=== PATIENT | male | born 1970 | race Caucasian/White ===

== ENCOUNTER 2018-08-18 20:15 | Emergency (ER) | payer BC, OTHER ==
[2018-08-18 20:27] VITALS: BP 133/93
--- NOTE | 2018-08-18 20:45 | UC ---
Throat Pain/Nasal Raimundo HPI - HPI Summary HPI Summary: 48 y/o male presents to the urgent care c/o URI symptoms for the past week. Pt reports sinus congestion w. yellowish moderate nasal discharge and +PND getting wore since 08/13/2018. Pt reports his has been work up here at the clinic for whooping cough, but he denies any of her symptoms. His cough is mild and dry , probably due to PND. Pt states sinus pain and pressure is 5/10 w/ B/L ear pressure too. Pt denies fever, dizziness, LACY, SOB, chest pain,abdominal pain, N/ V/d. - History of Current Complaint Chief Complaint: UCRespiratory Stated Complaint: sinus CONGESTION Time Seen by Provider: 08/18/18 20:44 Hx Obtained From: Patient Onset/Duration: Gradual Onset, Lasting Weeks - 1 week, Worse Since - since 08/13/2018 Severity: Moderate Pain Intensity: 5 Pain Scale Used: 0-10 Numeric Cough: Nonproductive Associated Signs & Symptoms: Positive: Sinus Discomfort, Nasal Discharge - yellowish. Negative: Dysphagia, Wheezing, Fever - Epiglottits Risk Factors Epiglottis Risk Factors: Negative - Allergies/Home Medications Allergies/Adverse Reactions: Allergies Allergy/AdvReac Type Severity Reaction Status Date / Time oxycodone Allergy SYNCOPE Verified 08/18/18 20:27 Home Medications: Home Medications Mv-Min/Vit C/Glut/Lysine/Hb124 [Airborne Effervescent Tablet] 1 each PO PRN 12/01 [History] Naproxen Sodium/Pseudoephedrin [Aleve-D Sinus and Cold Caplet] 1 each PO PRN 12/01 [History] guaiFENesin ER TAB [Mucinex*] 600 mg PO BID PRN 08/18/18 [History Confirmed 12/01] PMH/Surg Hx/FS Hx/Imm Hx Previously Healthy: Yes - Pt denies PMHX - Surgical History Surgical History: Yes Surgery Procedure, Year, and Place: TONSILLECTOMY, LEFT WRIST GANGLION CYST REMOVED - Family History Known Family History: Positive: Cardiac Disease, Hypertension - Social History Occupation: Employed Full-time Lives: With Family Alcohol Use: Occasionally Substance Use Type: None Smoking Status (MU): Never Smoked Tobacco Review of Systems All Other Systems Reviewed And Are Negative: Yes Constitutional: Positive: Negative Skin: Positive: Negative Eyes: Positive: Negative ENT: Positive: Nasal Discharge - yellwoish, Sinus Congestion, Sinus Pain/ Tenderness, Other - +PND Respiratory: Positive: Cough - dry Cardiovascular: Positive: Negative Gastrointestinal: Positive: Negative Genitourinary: Positive: Negative Motor: Positive: Negative, Decreased ROM Musculoskeletal: Positive: Negative Neurological: Positive: Negative Psychological: Positive: Negative Is Patient Immunocompromised?: No Physical Exam - Summary Physical Exam Summary: Vitals: reviewed General: Well developed, well-nourished male patient with NAD. Head and face: Normocephalic and atraumatic, Positive tenderness over the frontal and maxillary sinuses.. Eyes: PERRLA, EOMI x 2. Normal conjunctiva. No eye discharge. ENT: B/L external ear canal impacted w/ cerumen unable to visualize TM's Nose: edematous and erythematous nasal mucosa with with yellowish discharge and erythematous mucosa. Pharynx with erythema, no exudate. +moderate yellowish PND Neck: Supple, no JVD, no carotid bruits and no lymphadenopathy. Lungs: clear, no rales, no rhonchi, no wheezes. CVS: RRR, S1 and S2 present no murmurs or gallops appreciated. Abdomen: soft nontender with positive bowel sounds. Extremities: no edema noted. Neuro: WNL. Skin: warm and dry Triage Information Reviewed: Yes Vital Signs: Initial Vital Signs Temp 98 F 08/18/18 20:24 Pulse 88 08/18/18 20:24 Resp 16 08/18/18 20:24 BP 133/93 08/18/18 20:24 Pulse Ox 98 08/18/18 20:24 Throat Pain/Nasal Course/Dx - Course Course Of Treatment: 48 y/o male presents to the urgent care c/o URI symptoms for the past week. Pt reports sinus congestion w. yellowish moderate nasal discharge and +PND getting wore since 08/13/2018. Pt reports his has been work up here at the clinic for whooping cough, but he denies any of her symptoms. His cough is mild and dry, probably due to PND. Pt states sinus pain and pressure is 5/10 w/ B/L ear pressure too. Pt denies fever, dizziness, LACY, SOB, chest pain,abdominal pain, N/V/d. Hx obtained. Pt w/ sinusitis and B/L cerumen impaction on examination. B/L ear irrigation ordered and performed by nurse. Pt tolerated well procedure and felt better. Rt external ear w/ erythema and mild yellowish discharge. Pt with 1 week of symptoms getting worse. Pt Rx Augmentin PO and flonase nasal spray. First dose given at the clinic tonight. Pt also Rx Cortisporin otic drops for Rt external otitis. Discharge instructions explained to Pt. Advised to Return to the clinic or PCP if symptoms do not improve.Pt's BP is elevated today advised to decrease salt in diet, monitor BP and f/u with PCP for further management. Pt understood and agreed with plan of care. - Differential Dx/Diagnosis Differential Diagnosis/HQI/PQRI: Laryngitis, Otitis Media, Pharyngitis, Sinusitis, Other - cerumen impaction Provider Diagnosis: Sinusitis, acute, Cerumen impaction, Elevated BP without diagnosis of hypertension, Otitis externa of right ear Discharge - Sign-Out/Discharge Documenting (check all that apply): Patient Departure - d/c home All imaging exams completed and their final reports reviewed: No Studies - Discharge Plan Condition: Stable Disposition: HOME Prescriptions: Amoxicillin/Clavulanate TAB* [Augmentin TAB 875*] 875 mg PO BID #19 tab Fluticasone NASAL SPRAY 50MCG* [Flonase NASAL SPRAY 50MCG*] 2 spray BOTH NARES DAILY #1 btl Neomyc/Polym/HC 1% OTIC SUSP* [Cortisporin Otic Susp 1%*] 4 drop RIGHT EAR TID # 1 btl Patient Education Materials: Sinusitis (ED), Cerumen Impaction (ED), Low- Sodium Diet (ED) Referrals: Brendan Toscano MD [Primary Care Provider] - 3 Days Additional Instructions: 1- Please increase fluid intake and rest. take full course of antibiotic to avoid resistance. First dose given tonight 2-Use Flonase as directed to help drain fluid. Also buy saline drops to clear sinuses 3- Apply Cortisporin otic drops as directed on Rt ear to alleviate symptoms. 4-Return to the clinic or PCP in 1 week if symptoms do not improve for further management and treatment 5- Your BP is elevated today. please decrease salt in your diet, monitor BP and if it continues to be elevated please f/u with your PCP for further management - Billing Disposition and Condition Condition: STABLE Disposition: Home
[2018-08-18] MEDS ORDERED: Amoxicillin/Clavulanate TAB* 875 MG PO ONE (20:53)
== END 2018-08-18 21:24 | disposition home or self-care (01) ==
LOC: UCEAST 20:15
DX: J01.90 Acute sinusitis, unspecified (principal); H61.23 Impacted cerumen, bilateral; R03.0 Elevated blood-pressure reading, without diagnosis of hypertension; H60.91 Unspecified otitis externa, right ear; Z88.5 Allergy status to narcotic agent
CPT/HCPCS: 99203; A9270-GY; G0463